=== PATIENT | female | born 1995 | race Two or more races ===

== ENCOUNTER 2019-05-21 17:49 | Emergency (ER) | payer BC ==
[~2019-05-21] VITALS: Ht 170.2 cm; Wt 96.6 kg
--- NOTE | 2019-05-21 18:10 | NUR ---
ED Nurse Note: pt presents to ED with a rash on her lower face and chin. pt reports having a similar rash one week ago on her hand that happened at work. yesterday, pt was also at work when the rash broke out. pt reports her skin feeling dry and itchy but denies any swelling of her tongue, lips or throat. Pt denies using any new facial skin products. pt states she used hydrocortisone last time on her hand which helped with the itching. she has not done that today.
[2019-05-21 18:12] VITALS: BP 113/80
--- NOTE | 2019-05-21 18:24 | Emergency Room Report ---
History of Present Illness General Chief Complaint: Skin Rash/Abscess Source: Patient Present Illness HPI 23-year-old female presents to the emergency department complaining of itchy rash on the face x1 day. Patient states that she also is experiencing some URI symptoms with nasal congestion. Patient Denies swelling of the lips, tongue , throat or airway. She denies difficulty breathing. She reports that she is able to swallow. Patient denies wheezing or cough. She reports last week she had a rash breakout on her left hand while at work. Patient states that her rash on her face began yesterday after she got home from work as well. Patient states she has not taken any medications for her symptoms at this time pt. denies fevers, chills or swollen tender lymph nodes. Denies lesions/rashes elsewhere on the body. Denies new medications or body washes or creams. Denies wheezing, or shortness of breath. Denies recent travel, recent illness or ill contacts. denies blisters, oral lesions, or sloughing of the skin. Allergies: Coded Allergies: No Known Allergies (Unverified , 05/21/19) Patient History Past Medical History: see triage record Past Surgical History: none Pertinent Family History: none Now: No Reviewed Nursing Documentation: PMH: Agreed; PSxH: Agreed Nursing Documentation-PMH Past Medical History: No Stated History Review of Systems All Other Systems: negative except mentioned in HPI Physical Exam Vital Signs Date Time Temp Pulse Resp B/P (MAP) Pulse Ox O2 Delivery O2 Flow Rate FiO2 05/21/19 17:59 98.1 87 17 113/80 (91) 99 Room Air Sp02 EP Interpretation: reviewed, normal General Appearance: no apparent distress, alert, GCS 15, non-toxic Head: normocephalic, atraumatic Eyes: bilateral eye normal inspection, bilateral eye PERRL ENT: hearing grossly normal, normal pharynx, normal voice, uvula midline, moist mucus membranes, other - diffuse fine pustular rash to the face. no eye involvement, no oral involvement. no swelling of the lips or tongue Neck: full range of motion, other - no stridor Respiratory: chest non-tender, lungs clear, normal breath sounds, speaking full sentences Cardiovascular #1: regular rate, rhythm, no edema Musculoskeletal: back normal, gait/station normal, normal range of motion, non- tender Neurologic: alert, oriented x3, responsive, motor strength/tone normal, sensory intact, speech normal, grossly normal Psychiatric: judgement/insight normal Skin: rash - diffuse faint pustular rash on the face. please see ENT section. no lesions/rash elsewhere on the body, no blisters or vessicles. Lymphatic: no adenopathy Medical Decision Making PA Attestation Dr. Geiger is my supervising Physician whom patient management has been discussed with. Diagnostic Impression: Primary Impression: Rash and other nonspecific skin eruption ER Course 23-year-old female presents to the emergency department complaining of itchy rash on the face x1 day. Patient states that she also is experiencing some URI symptoms. Patient Denies swelling of the lips, tongue , throat or airway. She denies difficulty breathing. She reports that she is able to swallow. Patient denies wheezing or cough. She reports last week she had a rash breakout on her left hand while at work. Patient states that her rash on her face began yesterday after she got home from work as well. Patient states she has not taken any medications for her symptoms at this time pt. denies fevers, chills or swollen tender lymph nodes. Denies lesions/rashes elsewhere on the body. Denies new medications or body washes or creams. Denies wheezing, or shortness of breath. Denies recent travel, recent illness or ill contacts. denies blisters, oral lesions, or sloughing of the skin. Ddx considered but are not limited to allergic reaction, cellulitis, scabies, shingles, varicella, dermatitis, urticaria, eczema, tinea, viral exanthem, SJS Vital signs: are WNL, pt. is afebrile H&PE are most consistent with non-viral exanthem. most likely allergic reaction. --Physical exam does not suggest acute impending airway compromise or anaphylaxis. Patient has a patent airway. ORDERS: none required at this time, the diagnosis is clinical ED INTERVENTIONS: -Benadryl -Prednisone PO -I do not identify an emergent condition at this time. With current presentation , pt. is stable for close outpatient follow up and conservative treatment. D/ w pt. to return promptly to ED with worsening or new symptoms.- Pt. verbalizes' understanding and agreement with proposed treatment plan. DISCHARGE: At this time pt. is stable for d/c to home. Will provide printed patient care instructions, and any necessary prescriptions. Care plan and follow up instructions have been discussed with the patient prior to discharge. Last Vital Signs Date Time Temp Pulse Resp B/P (MAP) Pulse Ox O2 Delivery O2 Flow Rate FiO2 05/21/19 18:12 98.1 17 113/80 99 Room Air 05/21/19 17:59 87 Disposition: HOME, SELF-CARE Condition: Stable Scripts Cetirizine Hcl* (ZYRTEC*) 10 Mg Tablet 10 MG ORAL DAILY, #30 TAB 0 Refills Prov: Lola Mccracken 05/21/19 Clindamycin Phosphate (CLINDAMYCIN PHOSPHATE) 60 Ml Solution 1 APPLIC TP DAILY, #60 ML Prov: Lola Mccracken 05/21/19 Prednisone* (PREDNISONE*) 20 Mg Tablet 20 MG ORAL DAILY for 3 Days, #3 TAB 0 Refills Prov: Lola Mccracken 05/21/19 Diphenhydramine Hcl (BENADRYL ALLERGY) 25 Mg Tablet 25 MG PO Q6HR, #30 TAB Prov: Lola Mccracken 05/21/19 Departure Forms: Return to Work Return to Work Date: May 25, 2019 Other Restrictions: May return Sooner if Symptoms have resolved. Return to Full Activity: May 25, 2019 Patient Instructions: Rash Additional Instructions: Take medications as directed. Do not drink alcohol, drive, or operate heavy machinery while taking Benadryl as this may cause drowsiness. Follow up with a Primary Care Provider in 3-5 days for DERMATOLOGY REFERRAL for ALLERGY TESTING. even if your symptoms have resolved. --Please review list of primary care clinics, if you do not already have a primary care provider Return sooner to ED if new symptoms occur, or current symptoms become worse. - Please note that this Emergency Department Report was dictated using [employer] nicker technology software, occasionally this can lead to erroneous entry secondary to interpretation by the dictation equipment. Lola Mccracken May 21, 2019 18:24
[2019-05-21] MEDS ORDERED: CLINDAMYCIN PHO60 ML TP (18:27)
[2019-05-21] MEDS ORDERED: BENADRYL ALLERG25 M1 PO (18:27)
[2019-05-21] MEDS ORDERED: PREDNISONE20 MG ORAL (18:27)
--- NOTE | 2019-05-21 18:36 | NUR ---
ED Nurse Note: Pt cleared by health care Provider for discharge. pt reports not feeling itchy anymore. DC instructions/prescription were given and explained to pt, she verbalized understanding of teachings. All medical deviecs such as ID band removed. Pt is AAO x4, ambulatory and left with all personal belongings with her mother.
[2019-05-21] MEDS ORDERED: ZYRTEC10 MG ORAL (18:37)
[2019-05-21 18:40] VITALS: BP 113/80
== END 2019-05-21 18:36 | disposition home or self-care (01) ==
LOC: EMR 18:15
DX: R21 Rash and other nonspecific skin eruption (principal)
CPT/HCPCS: 99282; J7512